=== PATIENT | female | born 1935 | race Caucasian/White ===

== ENCOUNTER 2017-02-28 09:03 | Emergency (ER) | payer MEDICARE ==
[~2017-02-28] VITALS: Wt 63.5 kg
[~2017-02-28 09:03] MED LIST: B121000 MCG/1 IM; CARDIZEM30 MG PO; MEDROL DOSEPAK4 MG PO; NEURONTIN400 MG PO; XANAX0.5 MG PO; [UNRECOGNIZED DRUG - OTHER] IJ
[2017-02-28 09:06] VITALS: BP 201/90
[2017-02-28] MEDS ORDERED: CYCLOBENZAPRINE10 MG PO (11:30)
== END 2017-02-28 11:34 | disposition home or self-care (01) ==
LOC: ED 09:03
DX: M25.552 Pain in left hip (principal); Z90.49 Acquired absence of other specified parts of digestive tract; Z90.710 Acquired absence of both cervix and uterus

== ENCOUNTER 2017-03-15 12:42 | Inpatient (IN) | payer MEDICARE ==
[~2017-03-15] VITALS: Ht 154.9 cm; Wt 71.3 kg
[2017-03-15] VITALS (7 sets, daily range): BP systolic 147–200; BP diastolic 70–87
--- NOTE | ~2017-03-15 | WRIGHTHP ---
[place], [place] PATIENT HISTORY AND PHYSICAL EXAM NAME: [facility]STIAN [facility]ANTOS [facility] [id number] UNIT #: [id number] ROOM: 512 DOCTOR: AQUILINO GARRISON DO BIRTHDATE: [birth year] DOS: 03/15/2017 PRIMARY CARE PHYSICIAN: Dr. Veronica Rodriguez. The patient was seen and evaluated with the resident on 03/15/2017. Please see the resident's note for further details. ASSESSMENT: 1. Hypertension emergency. 2. Chest pain, rule out myocardial infarction. 3. Dyspnea on exertion. 4. Chronic kidney disease, stage III. 5. Hyperlipidemia. 6. Chronic pain associated with spinal compression fractures. 7. Frequent palpitations. 8. Anxiety. 9. History of cerebrovascular accident in 1994 with no major lasting deficits. 10. Negative cardiac stress test in 01/2017. PLAN: Continue to monitor the blood pressure closely. Consult Cardiology. Continue to follow cardiac enzymes. AQUILINO GARRISON DO CM:HISPHYS:PATIENT HISTORY AND PHYSICAL EXAMINATION [id number] [id number] AQUILINO GARRISON DO 03/15/17 1632 interface
--- NOTE | ~2017-03-15 | CON ---
[place], [place] REPORT OF CONSULTATION NAME[id number] UNIT #: [id number] ROOM: 512 DOCTOR: NII RICHARD MD BIRTHDATE: [birth year] DOS: 03/15/2017 REASON FOR CONSULTATION: Chest pain and elevated blood pressure. HISTORY OF PRESENT ILLNESS: The patient is an 81-year-old woman with a history of paroxysmal supraventricular tachycardia, palpitations and hypertension. She also has chronic back pain, for which she does have a pain pump in place. She states that recently her leg pains have been much worse and she was seen in the Emergency Room recently at [facility] and also at [facility] for pain management. She was placed on a course of steroids with only minimal relief. Since yesterday, she states that she has noticed that her blood pressure has been high. She has been monitoring it at home and has noticed that it has been in the 170 or higher systolic range. This morning along with an elevated blood pressure, she felt a tight sensation in her chest, which is unlike her usual palpitations. It radiated into her right chest and neck. She became very concerned and therefore came to the Emergency Room. In the Emergency Room, her blood pressure was 200/87. Her electrocardiogram showed no acute changes and her initial troponin level was normal. Nonetheless, because of her elevated blood pressure and complained of tightness in her chest, the patient was admitted for further assessment. Please note, the patient does have a long history of atypical chest pain. She did have a pharmacologic myocardial perfusion study on 01/25/2017, which showed normal perfusion and an ejection fraction of 86%. It was felt to be a low-risk study. PAST MEDICAL HISTORY: Includes: 1. Essential hypertension. 2. Transient ischemic attacks. 3. Gastroesophageal reflux disease. 4. Hyperlipidemia. 5. History of appendectomy, partial thyroidectomy, back surgery, cholecystectomy and tonsillectomy. 6. Long history of back and leg pains. The patient does have a pain pump in place. 7. Echocardiogram on 03/16/2016 showed normal left ventricular size and systolic function with stage 1 diastolic dysfunction and trace mitral insufficiency. 8. A nuclear myocardial perfusion study on 03/15/2016, no evidence for pharmacologic induced myocardial ischemia, ejection fraction 85%. 9. Two-week event recorder from 10/30/2016 through the ____ showed 7 episodes of SVT lasting up to an hour and 15 minutes with heart rates during SVT as high as 153 beats per minute. 10. Lexiscan myocardial perfusion study on 01/25/2017, ejection fraction of 86%, no ischemia, low risk exam. MEDICATIONS: Prior to admission, cyanocobalamin 1000 mcg injected monthly, alprazolam 0.5 mg q.8 hours p.r.n., cyclobenzaprine 10 mg t.i.d., digoxin 125 [place], [place] REPORT OF CONSULTATION NAME: SEBASTIAN SANTOS UNIT #: [id number] ROOM: 512 DOCTOR: NII RICHARD MD BIRTHDATE: [birth year] mcg daily, diltiazem 60 mg b.i.d. and gabapentin 400 mg t.i.d. ALLERGIES: THE PATIENT LISTS ALLERGIES TO IODINE. REVIEW OF SYSTEMS: The patient denies diplopia or loss of vision. She denies any recent change in her hearing. She denies fevers, chills, sweats or recent weight change. She denies any cough or hemoptysis. She does have a long history of palpitations, for which she has been evaluated by ____. She does have a followup scheduled with them. GASTROINTESTINAL: History negative for abdominal pain, diarrhea, nausea or vomiting. She does have dyspepsia on occasion. She has no dysuria or hematuria. She has no skin rashes. She denies seizures or tremors. She denies polydipsia or polyuria, heat or cold intolerance. She does have chronic back and leg pains. The remainder of the review of systems is negative except as noted above. FAMILY HISTORY: Negative for early coronary disease. SOCIAL HISTORY: The patient is . She does not smoke or consume significant amounts of alcohol. PHYSICAL EXAMINATION: GENERAL: She is a slender white female who is awake, alert and oriented. VITAL SIGNS: Pulse is 73 and regular, blood pressure is 156/74. She weighs 71.3 kg and has a body mass index of 29.7. HEENT: Normocephalic and atraumatic. Extraocular muscles are intact. Sclerae are clear. Pupils are equal, round and reactive to light. The oral mucosa is moist. Tongue is midline. NECK: Supple. She has no jugular distention. Carotids are full without bruits. She has no neck or supraclavicular masses. No thyromegaly. LUNGS: Respirations are unlabored. Her chest is clear to auscultation and percussion. She had no presacral edema or chest wall tenderness. CARDIOVASCULAR: Had a regular rhythm with a fourth heart sound, but no third heart sound or murmur. The PMI was not displaced. There was no precordial heave, lift or thrill. ABDOMEN: Soft and normally active without masses, organomegaly or bruits. EXTREMITIES: Showed no edema. Peripheral pulses are palpable in the feet. LABORATORY DATA: I reviewed her electrocardiogram, which showed sinus rhythm with mild nonspecific ST and T-wave changes, unchanged from her previous EKGs obtained in our office on 01/17/2017. IMPRESSIONS: 1. Hypertensive urgency. 2. Paroxysmal supraventricular tachycardia. 3. Atypical chest pain. The patient is ruling out for a myocardial infarction and a stress test done in January of this year was normal. Symptoms are very atypical. 4. The patient is intolerant to many medications. She has been placed on [place], [place] REPORT OF CONSULTATION NAME: SEBASTIAN SANTOS UNIT #: [id number] ROOM: 512 DOCTOR: NII RICHARD MD BIRTHDATE: [birth year] diltiazem, metoprolol and digoxin in the past for control of her palpitations. The medications may or may not be effective, but she does not tolerate anything, but smallest doses of them. A reassessment by clerical coordinator is scheduled in the future. PLAN: The patient has not been on hydrochlorothiazide for her high blood pressure and this certainly is the basis for most regimens of blood pressure management. We will therefore start a small dose of hydrochlorothiazide along with a low dose of diltiazem. We will observe her overnight with serial cardiac biomarkers. If her blood pressure is coming under control and she shows no significant arrhythmias or acute problems by morning, she probably can be discharged to home on 03/16/2017. [facility] and I thank Dr. Veronica Rodriguez in the hospitalist group for asking our advice regarding her care. NII RICHARD MD CM:CONSTR:REPORT OF CONSULTATION 1648 03/16/17 1454 interface
[~2017-03-15 12:42] MED LIST changes: +CYCLOBENZAPRINE10 MG PO
[2017-03-15 15:30] LABS: INTERNATIONAL NORM RATIO 0.9 (2.0-3.5)
[2017-03-15 15:32] LABS: BASO # 0.1 10*3/uL (0.0-0.1); BASO % 0.5 % (0.0-1.0); EOS # 0.1 10*3/uL (0.0-0.4); EOS % 0.8 % (1.0-4.0); HEMATOCRIT 36.6 % (37.0-47.0); IG # 0.1 10*3/uL (0.0-0.1); LYMPH # 0.9 10*3/uL (1.3-4.4); LYMPH % 8.7 % (27.0-41.0); MEAN CELL VOLUME 94.3 fl (81.0-99.0); MEAN CORPUSCULAR HGB 30.9 pg (27.0-31.0); MEAN CORPUSCULAR HGB CONC 32.8 g/dl (33.0-37.0); MEAN PLATELET VOLUME 9.3 fl (9.6-12.3); MONO # 0.5 10*3/uL (0.1-1.0); MONO % 5.1 % (3.0-9.0); NEUT # 8.5 10*3/uL (2.3-7.9); NEUT % 84.3 % (47.0-73.0); PLATELET COUNT AUTOMATED 182 10*3/uL (130-400); RED BLOOD COUNT 3.88 10*6/uL (4.10-5.10); RED CELL DISTRI WIDTH 13.4 % (0-14.5); WHITE BLOOD COUNT 10.1 10*3/uL (4.8-10.8)
[2017-03-15 15:38] LABS: ALBUMIN 3.5 gm/dl (3.1-4.5); BILIRUBIN, TOTAL 0.3 mg/dl (0.2-1.0); MAGNESIUM 2.5 mg/dL (1.5-2.1); PHOSPHOROUS 2.9 mg/dL (2.5-4.9); POTASSIUM 3.8 mmol/L (3.5-5.1); TOTAL PROTEIN 7.6 gm/dL (6.4-8.2)
[2017-03-15 15:39] LABS: FREE T4 0.92 ng/dl (0.76-1.46)
[2017-03-15 15:44] LABS: THYROID STIM HORMONE (HS) 1.09 uIU/ml (0.358-4.75)
[2017-03-15 15:49] LABS: HEMOGLOBIN A1c 5.3 % (4.8-5.6)
[2017-03-15] MEDS ORDERED: DILTIAZEM HCL60 MG PO (15:57)
[2017-03-15 16:19] LABS: VITAMIN D, 25-HYDROXY 12.4 ng/mL (30-100)
[2017-03-15 16:28] LABS: FOLIC ACID > 24.00 ng/mL (>5.38)
[2017-03-15] MEDS ORDERED: DIGITEK0.125 MG PO (16:38)
[2017-03-16] VITALS: BP 119/54
[2017-03-16 06:21] LABS: BASO # 0.1 10*3/uL (0.0-0.1); BASO % 0.8 % (0.0-1.0); EOS # 0.4 10*3/uL (0.0-0.4); EOS % 5.7 % (1.0-4.0); HEMATOCRIT 33.7 % (37.0-47.0); HEMOGLOBIN 10.8 g/dl (12.0-16.0); LYMPH # 1.3 10*3/uL (1.3-4.4); LYMPH % 19.8 % (27.0-41.0); MEAN CELL VOLUME 94.7 fl (81.0-99.0); MEAN CORPUSCULAR HGB 30.3 pg (27.0-31.0); MEAN PLATELET VOLUME 9.6 fl (9.6-12.3); MONO # 0.7 10*3/uL (0.1-1.0); MONO % 11.1 % (3.0-9.0); PLATELET COUNT AUTOMATED 189 10*3/uL (130-400); RED BLOOD COUNT 3.56 10*6/uL (4.10-5.10); RED CELL DISTRI WIDTH 13.5 % (0-14.5); WHITE BLOOD COUNT 6.5 10*3/uL (4.8-10.8)
[2017-03-16 06:51] LABS: BUN 14 mg/dl (7-24); CARBON DIOXIDE 32 mmol/L (21-32); CHLORIDE 96 mmol/L (98-107); EST GLOM FILT AFRICAN AMERICAN > 60 ml/min; GLUCOSE 82 mg/dL (65-99); POTASSIUM 3.2 mmol/L (3.5-5.1); SODIUM 136 mmol/L (136-145)
[2017-03-16 07:00] LABS: TROPONIN I < 0.015 ng/ml (<0.045)
[2017-03-16 08:00] VITALS: BP 136/62
[2017-03-16] MEDS ORDERED: HYDR12.5C PO (10:24)
[2017-03-16] MEDS ORDERED: ASPIRIN CHEWABL81 M1 PO (10:24)
[2017-03-16 12:00] VITALS: BP 120/50
[2017-03-16] MEDS ORDERED: NATURE'S BLEN1000 IU PO (15:37)
[2017-03-16] MEDS ORDERED: K-TAB20 MEQ PO (16:14)
== END 2017-03-16 14:21 | disposition home or self-care (01) | DRG 194 ==
LOC: ED 12:42 → EDHOLD 14:17 → 5E 14:40
PROVIDERS: Internal Medicine
DX: R09.1 Pleurisy (principal); I16.1 Hypertensive emergency; G62.9 Polyneuropathy, unspecified; N18.3 Chronic kidney disease, stage 3 (moderate); I47.1 Supraventricular tachycardia; R07.89 Other chest pain; I12.9 Hypertensive chronic kidney disease with stage 1 through stage 4 chronic kidney disease, or unspecified chronic kidney disease; E78.5 Hyperlipidemia, unspecified; G89.29 Other chronic pain; F41.9 Anxiety disorder, unspecified; K21.9 Gastro-esophageal reflux disease without esophagitis; Z86.73 Personal history of transient ischemic attack (TIA), and cerebral infarction without residual deficits; Z91.041 Radiographic dye allergy status

== ENCOUNTER → 2017-03-21 | Outpatient (CLI) | payer MEDICARE ==
[~2017-03-21] MED LIST changes: +ASPIRIN CHEWABL81 M1 PO; +DIGITEK0.125 MG PO; +DILTIAZEM HCL60 MG PO; +HYDR12.5C PO; +K-TAB20 MEQ PO; +NATURE'S BLEN1000 IU PO
== END | disposition home or self-care (01) ==
LOC: RAD 11:51
DX: M54.2 Cervicalgia (principal)

== ENCOUNTER → 2017-08-14 | Outpatient (CLI) | payer MEDICARE ==
[2017-08-14 12:33] LABS: BASO # 0.1 10*3/uL (0.0-0.1); BASO % 1.1 % (0.0-1.0); EOS # 0.1 10*3/uL (0.0-0.4); EOS % 0.8 % (1.0-4.0); HEMATOCRIT 41.3 % (37.0-47.0); HEMOGLOBIN 13.2 g/dl (12.0-16.0); LYMPH # 1.5 10*3/uL (1.3-4.4); LYMPH % 22.9 % (27.0-41.0); MEAN CELL VOLUME 94.7 fl (81.0-99.0); MEAN CORPUSCULAR HGB 30.3 pg (27.0-31.0); MEAN PLATELET VOLUME 9.9 fl (9.6-12.3); MONO # 0.5 10*3/uL (0.1-1.0); MONO % 8.2 % (3.0-9.0); NEUT # 4.2 10*3/uL (2.3-7.9); NEUT % 66.8 % (47.0-73.0); PLATELET COUNT AUTOMATED 209 10*3/uL (130-400); RED BLOOD COUNT 4.36 10*6/uL (4.10-5.10); RED CELL DISTRI WIDTH 12.7 % (0-14.5); WHITE BLOOD COUNT 6.3 10*3/uL (4.8-10.8)
[2017-08-14 12:57] LABS: ALBUMIN 3.9 gm/dl (3.1-4.5); CREATININE 1.27 mg/dL (0.55-1.02); POTASSIUM 3.1 mmol/L (3.5-5.1); TOTAL PROTEIN 7.8 gm/dL (6.4-8.2)
[2017-08-14 13:10] LABS: DIGOXIN 1.25 ng/ml (0.8-2.0)
== END | disposition home or self-care (01) ==
LOC: LAB 11:57
PROVIDERS: Internal Medicine Cardiovascular Disease
DX: I47.1 Supraventricular tachycardia (principal)

== ENCOUNTER 2017-10-11 17:57 | Inpatient (IN) | payer MEDICARE ==
[2017-10-11] VITALS (9 sets, daily range): BP systolic 121–128; BP diastolic 51–83
[~2017-10-11] VITALS: Ht 152.4 cm; Wt 62.7 kg
--- NOTE | ~2017-10-11 | PR ---
[place], [place] PROGRESS NOTE NAME: SEBASTIAN SANTOS UNIT #: [id number] ROOM: [facility]- DOCTOR: SUJATA SMITH MD BIRTHDATE: [birth year] DOS: 10/14/2017 SUBJECTIVE: The patient is sitting up in bed, does not appear in distress. She is slightly hard of hearing, but responds appropriately to verbal command. No symptomatic palpitation. No chest pain. No chest pressure. OBJECTIVE: VITAL SIGNS: Blood pressure 145/67, heart rate 65, respiratory rate of 14, temperature 97.5. NECK: Good upstroke. No bruit. HEART: S1, S2 with no rub. LUNGS: Clear to auscultation. ABDOMEN: Soft, nontender, present bowel sounds. LOWER EXTREMITIES: No edema. LABORATORY DATA: White count 5.5, hemoglobin 11.6. Potassium 3.6, GFR more than 60%. ASSESSMENT AND PLAN: Chest pain with abnormal troponin in a patient who had a completely normal stress test in January of this year. The patient currently is pain free. Echocardiogram is still pending. The patient on proper medication with no room to titrate beta sarah. Our plan at this time is to hold on any further workup pending the results of the echocardiogram. Should the echocardiogram show normal LV function, no wall motion abnormalities, the patient can be discharged home with early followup with ____ as an outpatient within 1-2 weeks. The patient was advised to call back for any recurrent chest pain at any time. SUJATA SMTIH MD CM:PNTRANS [id number] SUJATA SMITH MD 10/16/17 1548 interface
[2017-10-11 18:19] LABS: BASO % 0.3 % (0.0-1.0); EOS % 0.2 % (1.0-4.0); HEMATOCRIT 39.2 % (37.0-47.0); HEMOGLOBIN 12.6 g/dl (12.0-16.0); LYMPH # 0.3 10*3/uL (1.3-4.4); LYMPH % 4.4 % (27.0-41.0); MEAN CELL VOLUME 94.9 fl (81.0-99.0); MEAN CORPUSCULAR HGB 30.5 pg (27.0-31.0); MEAN CORPUSCULAR HGB CONC 32.1 g/dl (33.0-37.0); MEAN PLATELET VOLUME 10.3 fl (9.6-12.3); MONO # 0.3 10*3/uL (0.1-1.0); MONO % 5.6 % (3.0-9.0); NEUT # 5.3 10*3/uL (2.3-7.9); NEUT % 89.3 % (47.0-73.0); PLATELET COUNT AUTOMATED 156 10*3/uL (130-400); RED BLOOD COUNT 4.13 10*6/uL (4.10-5.10); RED CELL DISTRI WIDTH 13.3 % (0-14.5); WHITE BLOOD COUNT 5.9 10*3/uL (4.8-10.8)
[2017-10-11 18:30] LABS: ACT PARTIAL THROMBO TIME 25.2 SECONDS (20.8-31.5)
[2017-10-11 18:36] LABS: ALBUMIN 3.3 gm/dl (3.1-4.5); ALKALINE PHOSPHATASE 76 U/L (45-117); BUN 24 mg/dl (7-24); CHLORIDE 102 mmol/L (98-107); POTASSIUM 3.8 mmol/L (3.5-5.1); SGOT/AST 17 IU/L (3-35); SGPT/ALT 15 U/L (12-78); SODIUM 139 mmol/L (136-145); TOTAL PROTEIN 7.6 gm/dL (6.4-8.2)
[2017-10-11 18:40] LABS: TROPONIN I < 0.015 ng/ml (<0.045)
--- NOTE | 2017-10-11 19:09 | NUR ---
PT MEDICATED FOR PAIN PER DOCTORS ORDERS. PRIOR TO MED ADMINISTRATION PT RATES PAIN 8/10. PT RESTING IN BED. VSS. PULSE OX APPLIED. WILL CONTINUE TO MONITOR.
--- NOTE | 2017-10-11 19:30 | NUR ---
A 82, admitted to , under the services of MARJAN Kirk DO with a diagnosis of CHEST PAIN, ACUTE KIDNEY INJURY, AFIB, HYPOKALCEMIA. Chief complaint is CHEST PAIN. Patient arrived via bed from ER. Monitor applied. Initial assessment completed. Vital signs taken and recorded. MARJAN KIRK DO notified of admission to the unit. Orders received. See assessment for past medical history, medications and allergies. Patient and/or family oriented to unit. [facility] Clothing/patient valuable form completed. MARGARETH JIMENEZ
--- NOTE | 2017-10-11 20:00 | NUR ---
MED LIST UPDATED VIA LIST FROM FATHER.
[2017-10-11] MEDS ORDERED: DILT-XR180 MG PO (20:15)
[2017-10-11] MEDS ORDERED: POTASSIUM99 M5 PO (20:17)
[2017-10-11] MEDS ORDERED: VITAMIN D31000 UNI1 PO (20:17)
[2017-10-11] MEDS ORDERED: CARTIA XT120 MG PO (20:19)
--- NOTE | 2017-10-11 20:37 | NUR ---
ANSWERING SERVICE WAS NOTIFIED OF DR. RICHARD CONSULT. RESPONSE OF NOTIFICATION WAS OKAY THANK YOU. MARGARETH JIMENEZ
--- NOTE | 2017-10-11 23:04 | NUR ---
DR GARRISON NOTIFIED OF ELEVATED TROPONIN. INSTRUCTED TO MAKE SURE CARDIO IS AWARE. DR DUMONT RETURNED PAGE AND SAID WE DO NOT NEED TO CALL WITH ANYMORE ELEVATED TROPONINS UNLESS SHE IS HAVING CHEST PAIN.
[2017-10-12] VITALS: BP 126/56
--- NOTE | 2017-10-12 00:20 | NUR ---
LAB CALLED WITH TROP 0.177. DR DUMONT REQUESTED NOT TO BE NOTIFIED UNLESS PATIENT IS HAVING CHEST PAIN.
[2017-10-12 02:17] LABS: BILIRUBIN NEGATIVE (NEGATIVE); BLOOD NEGATIVE (NEGATIVE); CLARITY SL CLOUDY (CLEAR); COLOR YELLOW (YELLOW); GLUCOSE NEGATIVE (NEGATIVE); KETONE TRACE (NEGATIVE); LEUKO ESTERASE NEGATIVE (NEGATIVE); NITRITE NEGATIVE (NEGATIVE); PH 6.5 (5.0-9.0); UROBILINOGEN 0.2 E.U./dl (0.2-1.0)
--- NOTE | 2017-10-12 02:19 | NUR ---
PATIENT MEDICATED WITH PRN MORPHINE ORDERED FOR C/O HIP AND BACK PAIN WHICH SHE RATES AN 8/10
[2017-10-12 02:24] LABS: MUCOUS TRACE
--- NOTE | 2017-10-12 03:50 | NUR ---
PATIENT MEDICATED WITH 1X DOSE OF ATIVAN FOR C/O ANXIETY.
[2017-10-12 03:54] LABS: BASO % 0.2 % (0.0-1.0); EOS % 0.2 % (1.0-4.0); HEMATOCRIT 36.7 % (37.0-47.0); HEMOGLOBIN 11.6 g/dl (12.0-16.0); LYMPH # 0.6 10*3/uL (1.3-4.4); LYMPH % 10.3 % (27.0-41.0); MEAN CELL VOLUME 94.6 fl (81.0-99.0); MEAN CORPUSCULAR HGB 29.9 pg (27.0-31.0); MEAN CORPUSCULAR HGB CONC 31.6 g/dl (33.0-37.0); MEAN PLATELET VOLUME 10.4 fl (9.6-12.3); MONO # 0.4 10*3/uL (0.1-1.0); NEUT # 4.5 10*3/uL (2.3-7.9); NEUT % 82.1 % (47.0-73.0); PLATELET COUNT AUTOMATED 140 10*3/uL (130-400); RED BLOOD COUNT 3.88 10*6/uL (4.10-5.10); RED CELL DISTRI WIDTH 13.6 % (0-14.5); WHITE BLOOD COUNT 5.5 10*3/uL (4.8-10.8)
[2017-10-12 04:04] LABS: ACT PARTIAL THROMBO TIME 29.7 SECONDS (20.8-31.5)
[2017-10-12 04:10] LABS: CREATININE 1.12 mg/dL (0.55-1.02); PHOSPHOROUS 2.2 mg/dL (2.5-4.9); POTASSIUM 3.2 mmol/L (3.5-5.1); TOTAL PROTEIN 6.6 gm/dL (6.4-8.2)
[2017-10-12 04:11] LABS: FREE T4 0.9 ng/dl (0.76-1.46)
--- NOTE | 2017-10-12 04:14 | NUR ---
LAB CALLED WITH TROP 0.189. DR GARRISON NOTIFIED.
[2017-10-12 04:16] LABS: THYROID STIM HORMONE (HS) 0.45 uIU/ml (0.358-4.75)
--- NOTE | 2017-10-12 04:30 | NUR ---
PATIENT STATES EARLIER ATIVAN "HELPED A LOT" PATIENT RESTING QUIETLY IN BED, RESPIRATIONS EASY/REG. NO SXS OF DISTRESS. FLUIDS AND CARDIZEM GTT MAINTAINED PER ORDER.
[2017-10-12 06:52] LABS: VITAMIN D, 25-HYDROXY 25.3 ng/mL (30-100)
--- NOTE | 2017-10-12 07:45 | NUR ---
PATIENT MOVED TO THE ICCU WITH ALL BELONGINGS. DAUGHTER WAS NOTIFIED OF THE PATIENTS CHANGE. VSS STABLE, PATIENT RESTING COMFORTABLY.
[2017-10-12 07:53] VITALS: BP 124/68
--- NOTE | 2017-10-12 07:56 | NUR ---
PT TRANSFERED TO ICCU FROM AT THIS TIME PER DR CABALLERO ORDER. PT HAS ELEVATED TROPONINS.
--- NOTE | 2017-10-12 08:03 | NUR ---
2L O2 VIA NC PLACED ON PT DUE TO POX OF ONLY 90-91% ON ROOM AIR.
--- NOTE | 2017-10-12 09:30 | NUR ---
DR HOPKINS MADE AWARE OF PT BECOMING INCREASINGLY ANXIOUS AND AGITATED. PT REFUSING TO USE BSC DESPITE STAFF EXPLAINING THAT CURRENTLY THERE ARE NO ICU ROOMS AVAILABLE WITH A BATHROOM. THEN YELLING AT STAFF TO JUST GO AWAY BECAUSE SHE JUST WANTS TO GO HOME AND NO ONE IS EXPLAINING THINGS TO HER, EVEN THOUGH DR HOPKINS WAS LITERALLY AT HER BEDSIDE 2 MINUTES AGO EXPLAINING WHY SHE WAS SENT TO ICCU.
--- NOTE | 2017-10-12 10:12 | NUR ---
PT SLEEPING AND FAMILY AT BEDSIDE AT THIS TIME.
[2017-10-12 12:00] VITALS: BP 129/66
--- NOTE | 2017-10-12 13:40 | NUR ---
DR DUMONT IN TO SEE PT.
--- NOTE | 2017-10-12 14:31 | NUR ---
PT MEDICATED WITH MORPHINE 2MG IV FOR C/O CHRONIC BACK PAIN.
--- NOTE | 2017-10-12 14:43 | NUR ---
DR DUMONT NOTIFIED OF HIGH D-DIMER OF 1.58 NEW ORDER FOR CTA CHEST TO R/O PE.
--- NOTE | 2017-10-12 15:04 | NUR ---
DR DUMONT MADE AWARE OF PT'S IODINE ALLERGY WITH REGARDS TO HER ORDERED CTA. PREDNISONE PREP FOR 13 HOURS ORDERED. INFORMATION ASSURANCE SPECIALIST NOTIFIED AND WILL PLAN FOR CTA APPROX 4AM TOMORROW. FAMILY AWARE.
--- NOTE | 2017-10-12 15:40 | NUR ---
PT MEDICATED WITH ATIVAN 0.5MG PO FOR ANXIETY AND RESTLESSNESS. GRANDAUGHTER AT BEDSIDE AND STATES SHE ALWAYS GETS LIKE THIS WHEN SHE IS IN THE HOSPITAL.
[2017-10-12 16:00] VITALS: BP 143/74
--- NOTE | 2017-10-12 17:38 | NUR ---
PT RESTING QUIETLY IN BED SINCE BEING MEDICATED WITH ATIVAN 0.5MG PO FOR ANXIETY.
--- NOTE | 2017-10-12 19:26 | NUR ---
PT REQUESTING "SOMETHING TO SETTLE MY NERVES".... I PHONED DR WILLIAM AND RECEIVED ORDER. CONVEYED TO PT.
--- NOTE | 2017-10-12 19:45 | NUR ---
ATIVAN WAS GIVEN AT 1935 ORDERED. PT COOPERATIVE AND PLEASANT. I ASSESSED HER WHILE IN HER CHAIR AND ASSISTED HER BACK TO BED. CALL LIGHT IN REACH AND INSTRUCTED PT TO CALL ME IF SHE NEEDS TO GET UP TO BSC. BED EXIT ALARM ON FOR SAFETY WELL. PT STATES ATIVAN IS ALREADY EFFECTIVE AND SHE IS FEELING MUCH CALMER.
[2017-10-12 20:00] VITALS: BP 131/64
--- NOTE | 2017-10-12 23:40 | NUR ---
PT SLEEPING WITH EVEN, UNLABORED RESPIRATIONS.
[2017-10-13] VITALS: BP 112/63
--- NOTE | 2017-10-13 02:18 | NUR ---
PT DECLINES BATH AT THIS TIME.
[2017-10-13 04:00] VITALS: BP 113/61
--- NOTE | 2017-10-13 04:12 | NUR ---
PT TO CT SCAN WITH THIS NURSE AND BACK TO ROOM. TOLERATED WELL.
--- NOTE | 2017-10-13 04:53 | NUR ---
PT SLEEPING WITH EVEN,UNLABORED RESPIRATIONS.
[2017-10-13 05:51] LABS: BUN 23 mg/dl (7-24); CHLORIDE 102 mmol/L (98-107); CREATININE 0.98 mg/dL (0.55-1.02); POTASSIUM 3.6 mmol/L (3.5-5.1); SODIUM 137 mmol/L (136-145)
[2017-10-13 08:00] VITALS: BP 145/70
--- NOTE | 2017-10-13 10:07 | NUR ---
MORPHINE FOR BACK.LEG PAIN HAS BEEN INEFFECTIVE TYLENOL/ZOFRAN/ATIVAN NOW GIVEN FOR PAIN/ANXIETY/GITTERU STOMACH IN ROOM AND REQUESTING TO SPEAK WITH THE DR DR CRUZ UPDATED ON THIS
[2017-10-13 12:00] VITALS: BP 123/59
--- NOTE | 2017-10-13 12:05 | NUR ---
DR CRUZ INFORMED THAT PT WANTS SOMETHIGN FOR ARTHRITIC KNEE PAIN
--- NOTE | 2017-10-13 13:56 | NUR ---
PERCOCET EFFECTIVE FOR KNEE PAIN RELIEF
--- NOTE | 2017-10-13 14:07 | NUR ---
ATIVAN FOR ANXIETY PT FEELING OVERALL BETTER AND LESS STRESSED THAN THIS MORNING FAMILY AT BEDSIDE
[2017-10-13 16:00] VITALS: BP 111/60
--- NOTE | 2017-10-13 17:18 | NUR ---
UP TO RECLINER X 1 ASSIST
[2017-10-13 20:00] VITALS: BP 125/65
--- NOTE | 2017-10-13 20:25 | NUR ---
PT. GIVEN PERCOSET AND ATIVAN ORDERED AT 2006 PER REQUEST FOR PAIN MED FOR GENERALIZED ACHES AND PAINS. ATIVAN GIVEN ORDERED PER REQUEST FOR ANXIETY MED. PT. UP TO BSC WITH ASSIST. HEP LOCK IN MARCELLE AND RA ASYMPT. LUNGS CLEAR BILAT, PULSE OX 97% ON RA. ABDOMEN SOFT, NONDISTENDED AND NORMO. TRACE BILAT LOWER EXTREMITY EDEMA. OSMIN BELLO RN
--- NOTE | 2017-10-13 21:32 | NUR ---
PT. GIVEN NORCO AT 2102 ORDERED FOR GENERALIZED PAIN "FROM LAYING" PER PT. OSMIN BELLO RN
--- NOTE | 2017-10-13 21:34 | NUR ---
PT. SLEEPING PERCOSET AND ATIVAN EFFECTIVE.
[2017-10-14] VITALS: BP 126/57
[2017-10-14 04:00] VITALS: BP 132/63
[2017-10-14 08:00] VITALS: BP 145/67
--- NOTE | 2017-10-14 10:42 | NUR ---
PERCOCET EFFECTIVE, PT RESTING QUIETLY, JUST WANTS TO GO HOME
[2017-10-14 12:00] VITALS: BP 157/64
--- NOTE | 2017-10-14 13:28 | NUR ---
Clinical Unit Educator in to talk to patient. Patient states lives at home with . There are few steps in the home. Physician: juni jiménez Pharmacy: [facility] health services: none Patient's level of ADLs: INDEPENDENT Patient has working utilities: all working DME: has a cane and walker Follow-up physician's appointment after d/c: will be made by hospitalist nurse director upon discharge Does patient want to access PORTAL?: no Discharge plan discussed with patient, and daughter present, patient lives at home with , she states she is independent in adls and ambulation, patient states she will be going home when able, discussed with her VNA and she refused any services at this time. KARAN CAMERON
--- NOTE | 2017-10-14 15:56 | NUR ---
SPOKE WITH YOLANDA FROM [facility] AND SHE RECIEVED A TEXT FROM DR SMITH THAT PTS ECHO WAS OK, AND PT CAN GO HOME TODAY FROM CARDIOLOGY POINT OF VIEW DR CRUZ UPDATED
[2017-10-14 16:00] VITALS: BP 147/61
--- NOTE | 2017-10-14 16:23 | NUR ---
PERCOCET FOR 10/10 JOINT PAIN JUSTIN HER KNEES IV ATIVAN FOR SEVERE AGITATION, PT IS FURIOUS THAT SHE HAS NOT BEEN DISCHARGED YET
--- NOTE | 2017-10-14 17:30 | NUR ---
SPOKE WITH DR JAVIER FELIZ PTS CT TODAY
[2017-10-14] MEDS ORDERED: LOPRESSOR25 MG PO (17:56)
[2017-10-14] MEDS ORDERED: XANAX0.25 MG PO (17:57)
--- NOTE | 2017-10-14 17:59 | NUR ---
PERCOCET EFFECTIVE FOR JOINT PAIN RELIEF ATIVAN EFFECTIVE FOR ANXIETY CONTROL
--- NOTE | 2017-10-14 18:00 | NUR ---
PTS FAMILY ADVISED OF HER PROBABLY NOT BEING DISCHARGED TODAY PTS OTHER DTR, CALLED CARDIOLOGY SERVICE ON HER OWN DR SMITH CALLED IN AND WAS UPSET ON PT NOT BEING DISCHARGED AND DR CRUZ, WHO WAS HERE IN THE UNIT TO SPEAK WITH THIS FAMILY, SPOKE WITH DR SMITH ON THE PHONE
--- NOTE | 2017-10-14 18:16 | NUR ---
PT DISCHARGED HOME, HOME CARE AND NEW MEDS DISCUSSED WITH STR THAT WAS HERE AND SHE VERBALIZED GOOD UNDERSTANDING, RESIDENT CLINIC NUMBER ALSO GIVEN TO PT AT HER REQUEST
--- NOTE | 2017-10-14 18:23 | NUR ---
PT ALREADY UTD ON FLU AND PNEU VAC
== END 2017-10-14 18:16 | disposition home or self-care (01) | DRG 281 ==
LOC: ED 17:57 → EDHOLD 18:44 → 4E 18:44 → ICCU 10-12 07:42
PROVIDERS: Internal Medicine; Nurse Practitioner Family; Student in an Organized Health Care Education/Training Program; ADMIT Internal Medicine
DX: I21.A1 Myocardial infarction type 2 (principal); E44.1 Mild protein-calorie malnutrition; N17.9 Acute kidney failure, unspecified; G62.9 Polyneuropathy, unspecified; I50.32 Chronic diastolic (congestive) heart failure; I13.0 Hypertensive heart and chronic kidney disease with heart failure and stage 1 through stage 4 chronic kidney disease, or unspecified chronic kidney disease; D64.9 Anemia, unspecified; I48.0 Paroxysmal atrial fibrillation; B34.9 Viral infection, unspecified; E55.9 Vitamin D deficiency, unspecified; K52.9 Noninfective gastroenteritis and colitis, unspecified; E86.0 Dehydration; E66.3 Overweight; E78.5 Hyperlipidemia, unspecified; F41.9 Anxiety disorder, unspecified; G89.29 Other chronic pain; K21.9 Gastro-esophageal reflux disease without esophagitis; N18.3 Chronic kidney disease, stage 3 (moderate); M48.00 Spinal stenosis, site unspecified; E87.6 Hypokalemia; R73.9 Hyperglycemia, unspecified; Z91.041 Radiographic dye allergy status; Z90.49 Acquired absence of other specified parts of digestive tract; Z90.710 Acquired absence of both cervix and uterus; Z98.49 Cataract extraction status, unspecified eye; Z82.49 Family history of ischemic heart disease and other diseases of the circulatory system; Z82.3 Family history of stroke; Z86.73 Personal history of transient ischemic attack (TIA), and cerebral infarction without residual deficits; Z79.82 Long term (current) use of aspirin; Z79.899 Other long term (current) drug therapy; Z68.26 Body mass index [BMI] 26.0-26.9, adult

== ENCOUNTER → 2017-11-29 | Outpatient (CLI) | payer MEDICARE ==
[~2017-11-29] MED LIST changes: +CARTIA XT120 MG PO; +DILT-XR180 MG PO; +LOPRESSOR25 MG PO; +POTASSIUM99 M5 PO; +VITAMIN D31000 UNI1 PO; +XANAX0.25 MG PO
[2017-11-29 09:46] LABS: BASO # 0.1 10*3/uL (0.0-0.1); EOS # 0.3 10*3/uL (0.0-0.4); EOS % 6.3 % (1.0-4.0); HEMATOCRIT 34.4 % (37.0-47.0); HEMOGLOBIN 10.8 g/dl (12.0-16.0); LYMPH # 1.9 10*3/uL (1.3-4.4); LYMPH % 37.5 % (27.0-41.0); MEAN CELL VOLUME 95.3 fl (81.0-99.0); MEAN CORPUSCULAR HGB 29.9 pg (27.0-31.0); MEAN CORPUSCULAR HGB CONC 31.4 g/dl (33.0-37.0); MEAN PLATELET VOLUME 10.1 fl (9.6-12.3); MONO # 0.5 10*3/uL (0.1-1.0); MONO % 9.9 % (3.0-9.0); NEUT # 2.2 10*3/uL (2.3-7.9); NEUT % 44.1 % (47.0-73.0); PLATELET COUNT AUTOMATED 179 10*3/uL (130-400); RED BLOOD COUNT 3.61 10*6/uL (4.10-5.10); RED CELL DISTRI WIDTH 13.7 % (0-14.5); WHITE BLOOD COUNT 5.1 10*3/uL (4.8-10.8)
[2017-11-29 10:18] LABS: ALBUMIN 3.3 gm/dl (3.1-4.5); CREATININE 1.32 mg/dL (0.55-1.02); POTASSIUM 3.7 mmol/L (3.5-5.1); TOTAL PROTEIN 7.1 gm/dL (6.4-8.2)
[2017-11-29 10:24] LABS: THYROID STIM HORMONE (HS) 1.74 uIU/ml (0.358-4.75)
== END | disposition home or self-care (01) ==
LOC: LAB 09:28
PROVIDERS: Internal Medicine
DX: I10 Essential (primary) hypertension (principal); E78.2 Mixed hyperlipidemia

== ENCOUNTER → 2017-12-05 | Outpatient (CLI) | payer MEDICARE | END | disposition home or self-care (01) | LOC: LAB 10:52 | PROVIDERS: Internal Medicine | DX: D64.9 Anemia, unspecified (principal) ==

== ENCOUNTER → 2018-01-06 | Outpatient (CLI) | payer MEDICARE | END | disposition home or self-care (01) | LOC: RAD 09:42 | DX: M25.511 Pain in right shoulder (principal); M25.552 Pain in left hip ==

== ENCOUNTER → 2018-03-04 | Outpatient (CLI) | payer MEDICARE ==
[2018-03-04 10:02] LABS: BILIRUBIN NEGATIVE (NEGATIVE); BLOOD NEGATIVE (NEGATIVE); CLARITY CLOUDY (CLEAR); COLOR YELLOW (YELLOW); GLUCOSE NEGATIVE (NEGATIVE); KETONE NEGATIVE (NEGATIVE); LEUKO ESTERASE NEGATIVE (NEGATIVE); NITRITE NEGATIVE (NEGATIVE); PH 5.5 (5.0-9.0); UROBILINOGEN 0.2 E.U./dl (0.2-1.0)
[2018-03-04 10:12] LABS: BASO % 0.2 % (0.0-1.0); EOS % 0.4 % (1.0-4.0); HEMATOCRIT 41.1 % (37.0-47.0); HEMOGLOBIN 12.7 g/dl (12.0-16.0); LYMPH # 2.2 10*3/uL (1.3-4.4); LYMPH % 21.2 % (27.0-41.0); MEAN CORPUSCULAR HGB 29.7 pg (27.0-31.0); MEAN CORPUSCULAR HGB CONC 30.9 g/dl (33.0-37.0); MEAN PLATELET VOLUME 9.7 fl (9.6-12.3); MONO % 9.7 % (3.0-9.0); NEUT # 6.8 10*3/uL (2.3-7.9); NEUT % 67.1 % (47.0-73.0); PLATELET COUNT AUTOMATED 279 10*3/uL (130-400); RED BLOOD COUNT 4.28 10*6/uL (4.10-5.10); RED CELL DISTRI WIDTH 14.1 % (0-14.5); WHITE BLOOD COUNT 10.2 10*3/uL (4.8-10.8)
[2018-03-04 10:35] LABS: ALBUMIN 3.7 gm/dl (3.1-4.5); CREATININE 1.19 mg/dL (0.55-1.02); POTASSIUM 3.4 mmol/L (3.5-5.1); TOTAL PROTEIN 7.5 gm/dL (6.4-8.2)
[2018-03-04 10:45] LABS: ACT PARTIAL THROMBO TIME 19.9 SECONDS (20.8-31.5); INTERNATIONAL NORM RATIO 0.9 (2.0-3.5)
[2018-03-04 11:05] LABS: BACTERIA TRACE; MUCOUS TRACE
== END | disposition home or self-care (01) ==
LOC: LAB 09:35
PROVIDERS: Orthopaedic Surgery
DX: Z01.818 Encounter for other preprocedural examination (principal); I10 Essential (primary) hypertension; E78.00 Pure hypercholesterolemia, unspecified; D64.9 Anemia, unspecified; R35.0 Frequency of micturition; R91.8 Other nonspecific abnormal finding of lung field; Z86.73 Personal history of transient ischemic attack (TIA), and cerebral infarction without residual deficits

== ENCOUNTER 2018-03-10 21:57 | Emergency (ER) | payer MEDICARE ==
[~2018-03-10] VITALS: Ht 157.4 cm; Wt 60.3 kg
[2018-03-10 21:59] VITALS: BP 132/62
[2018-03-10] MEDS ORDERED: CARDIZEM CD240 M1 PO (22:11)
== END 2018-03-10 23:44 | disposition home or self-care (01) ==
LOC: ED 21:57
DX: S01.01XA Laceration without foreign body of scalp, initial encounter (principal); S00.90XA Unspecified superficial injury of unspecified part of head, initial encounter; Z79.899 Other long term (current) drug therapy; W01.198A Fall on same level from slipping, tripping and stumbling with subsequent striking against other object, initial encounter; Y93.89 Activity, other specified; Y92.009 Unspecified place in unspecified non-institutional (private) residence as the place of occurrence of the external cause; Y99.8 Other external cause status

== ENCOUNTER 2018-05-04 12:16 | Emergency (ER) | payer MEDICARE ==
[~2018-05-04] VITALS: Wt 72.6 kg
[~2018-05-04 12:16] MED LIST changes: +CARDIZEM CD240 M1 PO
[2018-05-04 12:52] LABS: BASO # 0.1 10*3/uL (0.0-0.1); BASO % 0.8 % (0.0-1.0); EOS # 0.2 10*3/uL (0.0-0.4); EOS % 2.8 % (1.0-4.0); HEMATOCRIT 31.4 % (37.0-47.0); HEMOGLOBIN 9.4 g/dl (12.0-16.0); LYMPH # 1.1 10*3/uL (1.3-4.4); LYMPH % 14.1 % (27.0-41.0); MEAN CELL VOLUME 101.3 fl (81.0-99.0); MEAN CORPUSCULAR HGB 30.3 pg (27.0-31.0); MEAN CORPUSCULAR HGB CONC 29.9 g/dl (33.0-37.0); MEAN PLATELET VOLUME 9.6 fl (9.6-12.3); MONO # 0.8 10*3/uL (0.1-1.0); MONO % 10.2 % (3.0-9.0); NEUT # 5.7 10*3/uL (2.3-7.9); NEUT % 71.7 % (47.0-73.0); PLATELET COUNT AUTOMATED 249 10*3/uL (130-400); RED CELL DISTRI WIDTH 14.2 % (0-14.5); WHITE BLOOD COUNT 7.9 10*3/uL (4.8-10.8)
[2018-05-04 13:01] LABS: ACT PARTIAL THROMBO TIME 25.7 SECONDS (20.8-31.5); INTERNATIONAL NORM RATIO 0.9 (2.0-3.5)
[2018-05-04 13:08] LABS: ALBUMIN 3.3 gm/dl (3.1-4.5); CREATININE 1.31 mg/dL (0.55-1.02); POTASSIUM 3.6 mmol/L (3.5-5.1); TOTAL PROTEIN 7.8 gm/dL (6.4-8.2)
[2018-05-04 14:24] VITALS: BP 123/52
[2018-05-04] MEDS ORDERED: AUGMENTIN 875875 MG PO (14:25)
== END 2018-05-04 14:42 | disposition home or self-care (01) ==
LOC: ED 12:16
PROVIDERS: Emergency Medicine
DX: L03.115 Cellulitis of right lower limb (principal); E78.5 Hyperlipidemia, unspecified; E87.6 Hypokalemia; F41.9 Anxiety disorder, unspecified; G89.29 Other chronic pain; K21.9 Gastro-esophageal reflux disease without esophagitis; I13.0 Hypertensive heart and chronic kidney disease with heart failure and stage 1 through stage 4 chronic kidney disease, or unspecified chronic kidney disease; N18.3 Chronic kidney disease, stage 3 (moderate); I50.30 Unspecified diastolic (congestive) heart failure; I48.91 Unspecified atrial fibrillation; Z90.710 Acquired absence of both cervix and uterus; Z90.49 Acquired absence of other specified parts of digestive tract; Z88.8 Allergy status to other drugs, medicaments and biological substances

== ENCOUNTER 2020-01-23 11:41 | Emergency (ER) | payer MEDICARE ==
[~2020-01-23] VITALS: Ht 157.4 cm; Wt 61.2 kg
[~2020-01-23 11:41] MED LIST changes: +AUGMENTIN 875875 MG PO
[2020-01-23 11:48] VITALS: BP 133/64
[2020-01-23 13:27] LABS: BASO # 0.1 10*3/uL (0.0-0.1); BASO % 0.8 % (0.0-1.0); EOS # 0.2 10*3/uL (0.0-0.4); EOS % 3.3 % (1.0-4.0); HEMATOCRIT 38.6 % (37.0-47.0); HEMOGLOBIN 12.2 g/dl (12.0-16.0); LYMPH # 1.1 10*3/uL (1.3-4.4); LYMPH % 17.4 % (27.0-41.0); MEAN CELL VOLUME 97.5 fl (81.0-99.0); MEAN CORPUSCULAR HGB 30.8 pg (27.0-31.0); MEAN CORPUSCULAR HGB CONC 31.6 g/dl (33.0-37.0); MEAN PLATELET VOLUME 9.7 fl (9.6-12.3); MONO # 0.5 10*3/uL (0.1-1.0); MONO % 8.2 % (3.0-9.0); NEUT # 4.5 10*3/uL (2.3-7.9); PLATELET COUNT AUTOMATED 182 10*3/uL (130-400); RED BLOOD COUNT 3.96 10*6/uL (4.10-5.10); RED CELL DISTRI WIDTH 13.1 % (0-14.5); WHITE BLOOD COUNT 6.4 10*3/uL (4.8-10.8)
[2020-01-23 13:42] LABS: ALBUMIN 3.5 gm/dl (3.1-4.5); CREATININE 1.59 mg/dL (0.55-1.02); POTASSIUM 3.5 mmol/L (3.5-5.1); TOTAL PROTEIN 7.4 gm/dL (6.4-8.2)
[2020-01-23] MEDS ORDERED: MEDROL DOSEPAK4 MG PO (14:01)
== END 2020-01-23 14:05 | disposition home or self-care (01) ==
LOC: ED 11:41
PROVIDERS: Emergency Medicine
DX: M25.561 Pain in right knee (principal); M25.562 Pain in left knee; G89.29 Other chronic pain; I48.91 Unspecified atrial fibrillation; I11.0 Hypertensive heart disease with heart failure; I50.30 Unspecified diastolic (congestive) heart failure; K21.9 Gastro-esophageal reflux disease without esophagitis; F41.9 Anxiety disorder, unspecified; E78.5 Hyperlipidemia, unspecified; Z91.041 Radiographic dye allergy status; Z79.899 Other long term (current) drug therapy; Z90.49 Acquired absence of other specified parts of digestive tract

== ENCOUNTER → 2020-09-29 | Outpatient (CLI) | payer MEDICARE ==
[2020-09-29 15:31] LABS: BASO # 0.1 10*3/uL (0.0-0.1); BASO % 1.5 % (0.0-1.0); EOS # 0.2 10*3/uL (0.0-0.4); EOS % 2.6 % (1.0-4.0); HEMATOCRIT 36.1 % (37.0-47.0); LYMPH # 1.7 10*3/uL (1.3-4.4); LYMPH % 28.1 % (27.0-41.0); MEAN CELL VOLUME 99.7 fl (81.0-99.0); MEAN CORPUSCULAR HGB 30.4 pg (27.0-31.0); MEAN CORPUSCULAR HGB CONC 30.5 g/dl (33.0-37.0); MEAN PLATELET VOLUME 10.4 fl (9.6-12.3); MONO # 0.7 10*3/uL (0.1-1.0); MONO % 10.9 % (3.0-9.0); NEUT # 3.4 10*3/uL (2.3-7.9); NEUT % 56.6 % (47.0-73.0); PLATELET COUNT AUTOMATED 174 10*3/uL (130-400); RED BLOOD COUNT 3.62 10*6/uL (4.10-5.10); RED CELL DISTRI WIDTH 13.2 % (0-14.5); WHITE BLOOD COUNT 6.1 10*3/uL (4.8-10.8)
== END | disposition home or self-care (01) ==
LOC: LAB 15:01
PROVIDERS: ATTEND Orthopaedic Surgery
DX: M17.0 Bilateral primary osteoarthritis of knee (principal); I10 Essential (primary) hypertension

== ENCOUNTER → 2020-10-24 | Outpatient (CLI) | payer MEDICARE | END | disposition home or self-care (01) | LOC: NM 05:28 | PROVIDERS: ATTEND Orthopaedic Surgery | DX: M17.11 Unilateral primary osteoarthritis, right knee (principal); Z96.652 Presence of left artificial knee joint; Z96.651 Presence of right artificial knee joint ==

== ENCOUNTER → 2020-12-05 | Outpatient (CLI) | payer MEDICARE | END | disposition home or self-care (01) | LOC: CARD 12-01 12:00 | PROVIDERS: ATTEND Internal Medicine Cardiovascular Disease | DX: I34.0 Nonrheumatic mitral (valve) insufficiency (principal); I35.8 Other nonrheumatic aortic valve disorders ==

== ENCOUNTER → 2021-03-21 | Outpatient (CLI) | payer MEDICARE ==
[~2021-03-21] MED LIST changes: +TOPROL XL25 MG PO
== END | disposition home or self-care (01) ==
LOC: LAB 15:41 → COVID19 15:41
PROVIDERS: ATTEND Student in an Organized Health Care Education/Training Program
DX: Z01.812 Encounter for preprocedural laboratory examination (principal); I48.11 Longstanding persistent atrial fibrillation; Z20.822 Contact with and (suspected) exposure to COVID-19

== ENCOUNTER 2021-07-01 09:15 | Emergency (ER) | payer MEDICARE ==
[~2021-07-01] VITALS: Ht 154.9 cm; Wt 61.2 kg
[2021-07-01 09:55] LABS: BASO # 0.1 10*3/uL (0.0-0.1); BASO % 1.1 % (0.0-1.0); EOS # 0.1 10*3/uL (0.0-0.4); EOS % 1.5 % (1.0-4.0); HEMATOCRIT 36.9 % (37.0-47.0); LYMPH # 1.2 10*3/uL (1.3-4.4); LYMPH % 19.8 % (27.0-41.0); MEAN CELL VOLUME 97.6 fl (81.0-99.0); MEAN CORPUSCULAR HGB 30.7 pg (27.0-31.0); MEAN CORPUSCULAR HGB CONC 31.4 g/dl (33.0-37.0); MEAN PLATELET VOLUME 10.2 fl (9.6-12.3); MONO # 0.5 10*3/uL (0.1-1.0); MONO % 7.4 % (3.0-9.0); NEUT # 4.3 10*3/uL (2.3-7.9); NEUT % 69.9 % (47.0-73.0); PLATELET COUNT AUTOMATED 183 10*3/uL (130-400); RED BLOOD COUNT 3.78 10*6/uL (4.10-5.10); RED CELL DISTRI WIDTH 12.9 % (0-14.5); WHITE BLOOD COUNT 6.1 10*3/uL (4.8-10.8)
[2021-07-01 10:13] LABS: ALBUMIN 3.5 gm/dl (3.1-4.5); ALKALINE PHOSPHATASE 89 U/L (45-117); BUN 23 mg/dl (7-24); CHLORIDE 110 mmol/L (98-107); CREATININE 1.47 mg/dL (0.55-1.02); POTASSIUM 3.8 mmol/L (3.5-5.1); SGOT/AST 17 IU/L (3-35); SGPT/ALT 16 U/L (12-78); SODIUM 142 mmol/L (136-145); TOTAL PROTEIN 7.6 gm/dL (6.4-8.2)
[2021-07-01 10:14] LABS: TROPONIN I < 0.015 ng/ml (<0.045)
[2021-07-01 10:41] LABS: BILIRUBIN Negative (Negative); BLOOD Negative (Negative); CLARITY Clear (Clear); COLOR Yellow (Yellow); GLUCOSE Negative (Negative); KETONE Negative (Negative); LEUKO ESTERASE Negative (Negative); NITRITE Negative (Negative); SPECIFIC GRAVITY <= 1.005 (1.001-1.030); UROBILINOGEN 0.2 E.U./dl (0.0-1.0)
[2021-07-01 11:00] LABS: EPITHELIAL CELLS 0-2; WBC 0-2 wbc/hpf (0-5)
[2021-07-01 11:02] VITALS: BP 129/69
[2021-07-12] MEDS ORDERED: ELIQUIS2.5 M1 PO (08:22)
[2021-07-12] MEDS ORDERED: ATROVENT HFA12.9 GM INH (08:23)
[2021-07-12] MEDS ORDERED: FOLINIC-PLUS C1 EACH PO (08:24)
[2021-07-12] MEDS ORDERED: CALCIUM MAGNES1 EACH PO (08:24)
[2021-07-12] MEDS ORDERED: NEURONTIN400 MG PO (08:25)
[2021-07-12] MEDS ORDERED: TORSEMIDE20 MG PO (08:25)
== END 2021-07-01 11:05 | disposition home or self-care (01) ==
LOC: ED 09:15
PROVIDERS: Student in an Organized Health Care Education/Training Program
DX: I47.1 Supraventricular tachycardia (principal); I48.91 Unspecified atrial fibrillation; F41.9 Anxiety disorder, unspecified; Z91.041 Radiographic dye allergy status; Z79.899 Other long term (current) drug therapy; Z96.652 Presence of left artificial knee joint; Z90.49 Acquired absence of other specified parts of digestive tract; Z98.890 Other specified postprocedural states; Z90.711 Acquired absence of uterus with remaining cervical stump; Z90.89 Acquired absence of other organs

== ENCOUNTER → 2021-07-12 | Outpatient (CLI) | payer MEDICARE ==
[~2021-07-12] MED LIST changes: +ATROVENT HFA12.9 GM INH; +CALCIUM MAGNES1 EACH PO; +ELIQUIS2.5 M1 PO; +FOLINIC-PLUS C1 EACH PO; +TORSEMIDE20 MG PO
== END | disposition home or self-care (01) ==
LOC: CARD 00:05
PROVIDERS: ATTEND Internal Medicine
DX: R07.9 Chest pain, unspecified (principal)

== ENCOUNTER 2021-08-11 11:04 | Emergency (ER) | payer MEDICARE ==
[~2021-08-11] VITALS: Ht 152.4 cm; Wt 59.0 kg
[2021-08-11 12:43] LABS: BASO # 0.1 10*3/uL (0.0-0.1); BASO % 1.4 % (0.0-1.0); EOS # 0.2 10*3/uL (0.0-0.4); EOS % 2.9 % (1.0-4.0); HEMATOCRIT 36.8 % (37.0-47.0); LYMPH # 1.3 10*3/uL (1.3-4.4); LYMPH % 23.7 % (27.0-41.0); MEAN CORPUSCULAR HGB 31.3 pg (27.0-31.0); MEAN CORPUSCULAR HGB CONC 31.3 g/dl (33.0-37.0); MEAN PLATELET VOLUME 10.1 fl (9.6-12.3); MONO # 0.5 10*3/uL (0.1-1.0); NEUT # 3.6 10*3/uL (2.3-7.9); NEUT % 63.8 % (47.0-73.0); PLATELET COUNT AUTOMATED 184 10*3/uL (130-400); RED BLOOD COUNT 3.68 10*6/uL (4.10-5.10); WHITE BLOOD COUNT 5.6 10*3/uL (4.8-10.8)
[2021-08-11 12:56] LABS: ACT PARTIAL THROMBO TIME 29.9 SECONDS (20.0-32.1)
[2021-08-11 12:58] LABS: ALBUMIN 3.2 gm/dl (3.1-4.5); ALKALINE PHOSPHATASE 95 U/L (45-117); BUN 22 mg/dl (7-24); CHLORIDE 106 mmol/L (98-107); CREATININE 1.51 mg/dL (0.55-1.02); POTASSIUM 4.3 mmol/L (3.5-5.1); SGOT/AST 17 IU/L (3-35); SGPT/ALT 18 U/L (12-78); SODIUM 141 mmol/L (136-145); TOTAL PROTEIN 7.7 gm/dL (6.4-8.2)
[2021-08-11 13:15] LABS: TROPONIN I < 0.015 ng/ml (<0.045)
[2021-08-15 20:55] VITALS: BP 112/68
== END 2021-08-15 21:55 | disposition short-term general hospital (02) ==
LOC: ED 11:04
PROVIDERS: Family Medicine
DX: I49.5 Sick sinus syndrome (principal); Z79.899 Other long term (current) drug therapy

== ENCOUNTER 2021-10-14 08:56 | Emergency (ER) | payer MEDICARE ==
[~2021-10-14] VITALS: Wt 59.0 kg
[2021-10-14 09:27] LABS: BASO % 0.5 % (0.0-1.0); EOS % 0.2 % (1.0-4.0); HEMATOCRIT 31.7 % (37.0-47.0); LYMPH # 0.8 10*3/uL (1.3-4.4); LYMPH % 13.6 % (27.0-41.0); MEAN CELL VOLUME 93.2 fl (81.0-99.0); MEAN CORPUSCULAR HGB 29.7 pg (27.0-31.0); MEAN CORPUSCULAR HGB CONC 31.9 g/dl (33.0-37.0); MONO # 0.4 10*3/uL (0.1-1.0); MONO % 6.8 % (3.0-9.0); NEUT # 4.7 10*3/uL (2.3-7.9); NEUT % 78.1 % (47.0-73.0); PLATELET COUNT AUTOMATED 301 10*3/uL (130-400); RED CELL DISTRI WIDTH 14.1 % (0-14.5)
[2021-10-14 09:39] LABS: ACT PARTIAL THROMBO TIME 41.3 SECONDS (20.0-32.1); INTERNATIONAL NORM RATIO 1.6 (2.0-3.5)
[2021-10-14 09:41] LABS: ALBUMIN 2.8 gm/dl (3.1-4.5); CREATININE 1.7 mg/dL (0.55-1.02); POTASSIUM 2.5 mmol/L (3.5-5.1); TOTAL PROTEIN 7.1 gm/dL (6.4-8.2)
[2021-10-14 16:23] LABS: CREATININE 1.49 mg/dL (0.55-1.02); POTASSIUM 4.5 mmol/L (3.5-5.1)
[2021-10-14] MEDS ORDERED: CARDIZEM30 MG PO (19:19)
[2021-10-14 20:12] VITALS: BP 111/61
== END 2021-10-14 20:13 | disposition short-term general hospital (02) ==
LOC: ED 08:56
PROVIDERS: Emergency Medicine
DX: Z79.899 Other long term (current) drug therapy (principal); Z86.73 Personal history of transient ischemic attack (TIA), and cerebral infarction without residual deficits; K21.9 Gastro-esophageal reflux disease without esophagitis; E78.5 Hyperlipidemia, unspecified; I11.0 Hypertensive heart disease with heart failure; I50.9 Heart failure, unspecified